=== PATIENT | male | born 1970 | race Caucasian/White ===

== ENCOUNTER 2018-09-06 08:07 | Day surgery (SDC) | payer BC ==
[2018-09-06] MEDS ORDERED: Propofol 200 MG/20 ML SDV IV ONE (08:08)
[2018-09-06] MEDS ORDERED: Lidocaine 2% 100 MG/5 ML Syringe IVPUSH ONE (08:08)
[2018-09-06] MEDS ORDERED: Sodium Chloride 0.9% 10 ML Syringe FLUSH PRN (08:15)
[2018-09-06] MEDS ORDERED: Lactated Ringers 1,000 ML IV SCH (08:15)
--- NOTE | 2018-09-06 10:33 | PCM.OPNOTE ---
- General Post-Op/Procedure Note Date of Surgery/Procedure: 09/06/18 Operative Procedure(s): EGD with Biopsy and Colonoscopy Findings: Small Hiatal Hernia with reflux esophagitis EGD otherwise normal Colonoscopy normal Pre Op Diagnosis: GERD. Possible narrowing of Sigmoid Colon Post-Op Diagnosis: Hiatal Hernia with reflux esophagitis. Normal Colon Anesthesia Technique: MAC Primary Surgeon: Dominic Arnold Pathology: Biopsies of Gastric Antrum and GE Jct Output, Urine Amount: 0 EBL in mLs: 3 Complications: None Condition: Good
--- NOTE | 2018-09-06 11:08 | PREOP ---
ADMISSION DATE: 09/06/2018 HISTORY: This 48-year-old male was referred by Dr. Oquendo for a colonoscopy. He was diagnosed with pulmonary emboli several months ago and a CT scan identified a possible area of narrowing of the sigmoid colon. The patient states that his bowel function has been satisfactory. He does not have difficulty with constipation. He has not seen any blood in the stools. The patient also notes that he has been having some postprandial symptoms of upper abdominal pain, some episodes of heartburn. He does have to take baking soda relatively frequently for the symptoms as well as elevating the head of his bed. He denies dysphagia. PAST MEDICAL HISTORY: His past medical history is notable for hypertension. He also has been diagnosed with pulmonary emboli and has been on anticoagulation for this since last fall. Other diagnoses in addition to the pulmonary emboli include obesity and hypertension. MEDICATIONS: 1. Currently taking Xarelto 15 mg a day. In preparation for this scope, he has been bridged with Lovenox. 2. Other medications include lisinopril 20 mg twice a day. ALLERGIES: He has no known drug allergies. PAST SURGICAL HISTORY: His previous surgeries include multiple left elbow surgery, wisdom teeth removal, and he did have an upper endoscopy several years ago. FAMILY HISTORY: Noncontributory. 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 He does not smoke. SYSTEM REVIEW: Shows no recent significant changes in health status other than increased shortness of breath with pulmonary emboli, which is gradually improving. He is not experiencing any chest pain or palpitations. He does note some left lower extremity swelling periodically, but is having no muscle pain in his extremities at this time. PHYSICAL EXAMINATION: VITAL SIGNS: Height 6 feet 1 inch, weight 360 pounds, temperature 98, pulse 55, blood pressure is 121/69. GENERAL: The patient is an adult male. He was in no acute distress. HEENT: Head is normocephalic. No scleral icterus. HEART: Regular. LUNGS: Clear. ABDOMEN: Soft. Minimal discomfort is noted on direct palpation in the upper mid abdomen. No abdominal masses are identified. EXTREMITIES: No calf tenderness or induration. IMPRESSION: 1. Possible sigmoid colon narrowing on CT scan. 2. Postprandial abdominal pain and heartburn. 3. History of pulmonary emboli. 4. Obesity. 5. Hypertension. PLAN: Advised proceeding with EGD as well as colonoscopy. I discussed the proposed endoscopic procedures with the patient, reviewed indications, options, and risks, including risk of anesthesia. We also discussed risk of bleeding and GI injury. The patient agrees to proceed. /[id number] RON/IVAN
--- NOTE | 2018-09-06 11:25 | OR ---
DATE OF OPERATION: 09/06/2018 SURGEON: Dominic Arnold MD REFERRING PHYSICIAN: Dr. Oquendo. PREOPERATIVE DIAGNOSES: Gastroesophageal reflux disease and abnormal sigmoid colon on CT scan. POSTOPERATIVE DIAGNOSES: Hiatal hernia with reflux esophagitis and normal colon. OPERATION PERFORMED: Esophagogastroduodenoscopy with biopsy and colonoscopy. INDICATIONS FOR SURGERY: This 48-year-old male was recently noted on CT scan to have a possible narrowing in the sigmoid colon and he is referred for colonoscopy. He also notes symptoms of abdominal bloating and GERD, and upper endoscopy is planned as well. FINDINGS: On upper endoscopy, the patient does have a small to moderate-sized hiatal hernia. There is noted at the GE junction, areas of inflammation with slight exudate, but without visible ulcerations. This inflammation extends for approximately 1 cm. The Z-line is 45 cm from the incisors. The remainder of the esophagus, stomach, and duodenum appear normal. The patient's colon appears normal. There are no visible abnormalities in the sigmoid region which demonstrates no signs of narrowing and normal distensibility. PROCEDURE IN DETAIL: The patient was taken to the procedure room. He was given intravenous sedation, and with him in the left lateral decubitus position, the esophagus was intubated with the Olympus gastroscope. This was carefully advanced down through the esophagus, stomach, and into the duodenum where examination to the third portion was performed. After examining the duodenum, the scope was withdrawn back into the stomach for full examination including retroflexed examination of the fundus was performed. Random biopsies of the antrum were taken to rule out H. pylori. The GE junction was then carefully examined and biopsies here are taken because of the visible signs of inflammation. The scope was withdrawn re-examining the esophagus and attention was turned to colonoscopy. Digital rectal exam was performed showing no rectal masses. The Olympus colonoscope was inserted into the rectum. Retroflexed examination of the rectal canal was performed. The scope was then carefully advanced under direct visualization through the entire length of the colon until the cecum was reached. Cecal acquisition was confirmed by noting the normal internal cecal anatomy including the appendiceal orifice and ileocecal valve. After examining the cecum, the scope was slowly withdrawn sequentially re- examining the colonic segments until the entire colon and rectum had been fully examined. The sigmoid region where the question on CT scan had been noted was carefully examined and no abnormalities were seen there. After the colon and rectum had been completely examined, the scope was removed and the patient was taken from the procedure room in satisfactory condition. ESTIMATED BLOOD LOSS: 3 mL. COMPLICATIONS: None. PROGNOSIS: Good. /[id number] RON/DAVIEL
== END 2018-09-06 11:32 | disposition home or self-care (01) ==
LOC: FB.SDS 08:07
PROVIDERS: ATTEND Surgery
DX: K21.9 Gastro-esophageal reflux disease without esophagitis (principal); R93.3 Abnormal findings on diagnostic imaging of other parts of digestive tract; K20.0 Eosinophilic esophagitis; K29.50 Unspecified chronic gastritis without bleeding; K44.9 Diaphragmatic hernia without obstruction or gangrene; I10 Essential (primary) hypertension; E66.9 Obesity, unspecified; G47.33 Obstructive sleep apnea (adult) (pediatric); Z99.89 Dependence on other enabling machines and devices; Z86.711 Personal history of pulmonary embolism; Z79.01 Long term (current) use of anticoagulants; Z79.899 Other long term (current) drug therapy
CPT/HCPCS: 93005; J2001; J2704; J7120